=== PATIENT | female | born 1985 | race Hispanic/Latino ===

== ENCOUNTER 2018-03-17 00:16 | Emergency (ER) | payer OTHER ==
[~2018-03-17] VITALS: Ht 162.6 cm; Wt 117.9 kg
[2018-03-17] MEDS ORDERED: ONDANSETRON HCL INJ 2MG/ML 2ML 2 MG/ML VIAL IV STA (00:24)
[2018-03-17] MEDS ORDERED: MORPHINE SULFATE INJ 4 MG/ML INJ 1ML IV ONE (00:30)
[2018-03-17] MEDS ORDERED: DICYCLOMINE HCL 20 MG/2 ML VIAL IM ONE (00:30)
[2018-03-17] MEDS ORDERED: SODIUM CHLORIDE 0.9% 1000ML 1,000 ML IV ONE (00:30)
--- NOTE | 2018-03-17 00:35 | NUR ---
IN TO GIVE PT MEDS AT THIS TIME, PT STATES "I'M NOT GONNA TAKE THE MEDICATION IF YOU ARE NOT GONNA DO ANYTHING TO ME" WHEN I ASKED PT TO EXPLAIN WHAT SHE MENT, SHE STATES THAT IF WE WERE NOT GOING TO OPERATE ON HER SHE WOULD RATHER LEAVE AND GO TO ANOTHER HOSPITAL. PT WANTS TO WAIT UNTIL SHE GETS THE RESULTS OF HER LAB WORK. CHARGE NURSE AND MD BOTH NOTIFIED.
[2018-03-17 00:59] LABS: BASOPHILS # (AUTO) 0.1 (0.0-0.1); BASOPHILS % 0.4 % (0.0-1.0); EOSINOPHILS # (AUTO) 0.4 (0.0-0.4); EOSINOPHILS % 3.3 % (0.0-6.0); HEMATOCRIT 36.3 % (34.2-44.1); HEMOGLOBIN 11.9 g/dL (12.0-16.0); LYMPHOCYTES # (AUTO) 4.3 (1.0-3.2); MEAN CORPUSCULAR HEMOGLOBIN 25.8 pg (28-32); MEAN CORPUSCULAR HGB CONC 32.8 g/dL (31-35); MEAN CORPUSCULAR VOLUME 78.7 fL (81-99); MONOCYTES # (AUTO) 0.6 (0.2-0.8); MONOCYTES % 5.7 % (4.4-11.3); NEUTROPHILS # (AUTO) 5.9 (2.1-6.9); NEUTROPHILS % 52.3 % (38.7-80.0); PLATELET COUNT 291 x10e3/uL (140-360); RED BLOOD COUNT 4.61 x10e6/uL (3.6-5.1); RED CELL DISTRIBUTION WIDTH 13.8 % (11.7-14.4)
[2018-03-17 00:59] LABS: BILIRUBIN,URINE NEGATIVE (NEGATIVE); CLARITY,URINE CLEAR (CLEAR); COLOR,URINE YELLOW (YELLOW); KETONES,URINE NEGATIVE (NEGATIVE); LEUKOCYTE ESTERASE ,URINE NEGATIVE (NEGATIVE); NITRITE,URINE NEGATIVE (NEGATIVE); PROTEIN,URINE DIPSTICK NEGATIVE (NEGATIVE); URINE UROBILINOGEN 0.2 mg/dL (0.2 - 1); WBC,URINE (MAN) 0-5 /HPF (0-5)
[2018-03-17 01:00] LABS: BACTERIA,URINE RARE /HPF; EPITHELIAL CELLS,URINE FEW /LPF; PREGNANCY TEST, URINE NEGATIVE (NEGATIVE); RBC,URINE 0-5 /HPF (0-5)
[2018-03-17 01:04] LABS: ALANINE AMINOTRANSFERASE 11 IU/L (0-55); ALBUMIN 3.7 g/dL (3.5-5.0); ALBUMIN/GLOBULIN RATIO 1.1 (0.8-2.0); ALKALINE PHOSPHATASE 72 IU/L (40-150); AMYLASE 49 U/L (25-125); ANION GAP 13.5 mmol/L (8-16); BLOOD UREA NITROGEN 12 mg/dL (7-26); BUN/CREATININE RATIO 13 (6-25); CALCIUM 8.8 mg/dL (8.4-10.2); CARBON DIOXIDE 26 mmol/L (22-29); CHLORIDE 101 mmol/L (98-107); CREATININE, SERUM 0.95 mg/dL (0.57-1.11); EST GLOMERULAR FILTRATION RATE > 60 ML/MIN (60-); GLUCOSE 107 mg/dL (74-118); LIPASE 16 U/L (8-78); POTASSIUM 3.5 mmol/L (3.5-5.1); SODIUM 137 mmol/L (136-145)
--- NOTE | 2018-03-17 02:00 | NUR ---
DR LOVELACE AT BEDSIDE TO EXPLAIN RESULTS TO PT AND TO EXPLAIN CONVERSATION WITH DR CERVANTES. PT BECAME VERY UPSET THAT SHE WAS NOT GETTING SURGERY RIGHT NOW AND TOLD HER IN [place] THAT SHE WAS JUST GONNA GO TO ANOTHER HOSPITAL. DR LOVELACE FURTHER EXPLAINED THAT DR FERREIRA WANTS TO SEE HER IN HIS OFFICE (SINCE HER CONDITION WAS NOT LIFE THREATNING) TO SCHEDULE SURGERY. SHE THEN EXCLAIMED "THEN WHY DID THE NURSE (MEANING DR CERVANTES'S ANSWERING SERVICE) TELL HER TO COME TO THE HOSPITAL?" SHE THEN STARTED TO REMOVE HER IV HERSELF. WHEN I TRIED TO HELP SHE SAID THAT I WAS HURTING HER, I IMMEDIATLY STOPPED AND LET HER CONTINUE. LT AC 18 PIV WAS REMOVED, CATH INTACT, SITE WITHOUT COMPLICATIONS. PT REFUSED TO HAVE HER VS DONE. SHE THEN GOT DRESSED AND CAME UP TO THE WINDOW AND DEMANDED HER DISCHARGE PAPERWORK. WE TOLD HER THAT WE WERE WORKING ON IT AT THE MOMENT. SHE STOOD AT THE WINDOW AND WAS WANTING AN INTERPRETATION OF THE LAB RESULTS. DR LOVELACE EXPLAINED IT TO HER AND ASSURED HER THAT HE WENT OVER THE RESULTS WITH DR CERVANTES. SHE THEN DEMANDED A WORK EXCUSE, WHICH WAS GIVEN TO HER. SHE THEN SAYS THAT IF ANYTHING HAPPENED TO HER WHEN SHE LEAVES THE HOSPITAL ITS ON US. SHE THEN ASK ABOUT THE PRESCRIPTIONS THAT WERE GIVEN TO HER, DR LOVELACE EXPLAINED THEM TO HER. SHE THEN SIGNED THE DISCHAGE PAPERWORK AND STORMED OFF.
[2018-03-17] MEDS ORDERED: CLONAZEPAM0.5 MG PO (17:49)
== END 2018-03-17 02:18 | disposition home or self-care (01) ==
LOC: ER 00:16
DX: R10.11 Right upper quadrant pain (principal); R11.0 Nausea; K80.70 Calculus of gallbladder and bile duct without cholecystitis without obstruction
CPT/HCPCS: 36415; 80053; 81001; 81025; 82150; 83690; 85025; 96374; 99283; J0500; J2270; J2405; J7030

== ENCOUNTER → 2018-03-18 | Day surgery (SDC) | payer OTHER ==
[~2018-03-18] MED LIST: BUPIVACAINE 0.25%/EPI 30ML SDV INJ ONE; CEFOXITIN SOD 1 GM VIAL ONE; CLONAZEPAM0.5 MG PO; DEXAMETHASONE SOD PHOS INJ 4 MG/ML VIAL ONE; FENTANYL CITRATE/PF 100MCG/2 ML INJ ONE; KETOROLAC TROMETHAMINE 30 MG/ML VIAL ONE; LIDOCAINE HCL 2% LOCAL INJ 5 ML SDV VIAL INJ ONE; METOCLOPRAMIDE HCL 10 MG/2ML VIAL ONE; MIDAZOLAM HCL 2 MG/2 ML VIAL ONE; MORPHINE SULFATE INJ 4 MG/ML INJ 1ML ONE; ONDANSETRON HCL INJ 2MG/ML 2ML 2 MG/ML VIAL ONE; PROMETHAZINE HCL (IM) 25 MG/ML VIAL ONE; PROPOFOL IV EMULSION 10 MG/ML 20 ML VIAL ONE; ROCURONIUM BROMIDE 10 MG/ML 5ML VIAL ONE; SEVOFLURANE INHAL SOLN 250 ML PEN BTL ONE
--- NOTE | 2018-03-18 15:59 | Operative Report ---
DATE OF PROCEDURE: March 18, 2018 PREOPERATIVE DIAGNOSES 1. Acute cholecystitis/chronic cholecystitis. 2. Morbid obesity. PROCEDURE PERFORMED: Laparoscopic cholecystectomy. SEARCHLIGHT OPERATOR: None. ESTIMATED BLOOD LOSS: Minimal. DRAINS: None. COMPLICATIONS: None. INDICATIONS AND FINDINGS: The patient is a 32-year-old female who was seen by me several months ago at the office last year with cholelithiasis. I advised her to have elective cholecystectomy. The patient refused because of noncompliance, and then presented to the emergency room Wed night with right upper quadrant pain and nausea. She was evaluated there. She had several labs that were all normal, including liver function tests. No ultrasound was repeated as far as I know. Then was referred to the office. I scheduled the patient for urgent cholecystectomy the next day. Patient was started on Levaquin and Tylenol No. 3 for pain control. INTRAOPERATIVE FINDINGS: Were [id number] cholecystitis with several very large stones. There was no ductal dilatation. There was an umbilical hernia. This hernia was not repaired as we made the incision superior to that to avoid the hernia. Due to the fact that she is morbidly obese with a BMI of 44, a mesh would have been required, which I did not want to place under these circumstances. The cholecystectomy was then performed after we identified the triangle of safety, namely the cystic duct. The cystic artery, the common duct and also a segment of the plate of the liver and gallbladder bed fossa. DESCRIPTION OF PROCEDURE: With the patient lying on the operating table in the supine position and after administration of general endotracheal anesthesia, she was prepped and draped for laparoscopic cholecystectomy. The procedure was begun by establishing a pneumoperitoneum. Initially, we attempted the right upper quadrant, but we could not get appropriate distention. Then I tried an alternate site to the right of the subxiphoid region in the right upper quadrant. I was able to get a pneumoperitoneum easily with initial low pressures that were increased to 15 without any tension after the saline drop test was performed. After we did that, we placed a 5-mm trocar in the right upper quadrant. Then under direct vision with the camera, we saw that there was an umbilical hernia. Then we placed the 11/12 trocar slightly superior to the umbilicus sparing the hernia. We then placed the 10/11 subxiphoid trocar, and finally right anterior axillary line trocar. We identified the gallbladder. It had a thickened wall with some degree of edema. It was consistent with subacute and chronic. There was no evidence of gangrene. We went ahead and then mobilized the gallbladder. We retracted the gallbladder cephalad using grasping forceps through the 5-mm trocars, and then detached omentum from the gallbladder. Exposed the cystic duct and common bile duct junction, as well as the cystic artery. Then we transected the cystic duct distally 3 times and once proximally. The cystic duct was small and nondilated. As previously stated, she had very large stones. The cystic artery was transected between titanium clips. Then the gallbladder was mobilized from the liver bed using electrocautery, traction and contraction, as well as some degree of hydrodissection until we detached the gallbladder, placed in an endobag and removed it through the supraumbilical port. After we did that, we inspected the operative field after ascertaining there was no bile leak. No bleeding. No apparent bowel injury. We closed the wounds. The supraumbilical port site had been closed prior to the closure with vision with TV camera using two of the 1-0 Vicryl obliterating the defect. Then we released the pneumoperitoneum. Then closed the subcutaneous tissue in that location, as well as the subxiphoid port with 2-0 plain gut for the supraumbilical port site, as well as the subxiphoid region. Then we closed the supraumbilical incision with 3-0 silk, and the remaining port sites were closed using alejandro. Then 0.25% Marcaine with epinephrine was given as local block at the end of the case. The family was informed of the intraoperative findings. I specifically gave this noncompliant patient instructions regarding postop care. She is aware. She is not go to [employer] classes. She is not supposed to drive. She is not supposed to do any lifting until I instruct her and allow her to do so. She agreed to follow my operative instruction. The sister was informed that she had an umbilical hernia, and that this would not be fixed now due to the fact that the acuteness of the situation and the fact that she is morbidly obese, and this type of hernia in this patient will require mesh placement. Job#: [id number] DELORES
[2018-03-18 16:00] VITALS: BP 116/87
== END | disposition home or self-care (01) ==
LOC: OR 08:15
PROVIDERS: ATTEND Surgery
DX: K80.12 Calculus of gallbladder with acute and chronic cholecystitis without obstruction (principal); K42.9 Umbilical hernia without obstruction or gangrene; E66.01 Morbid (severe) obesity due to excess calories; J45.998 Other asthma; F41.9 Anxiety disorder, unspecified; Z68.41 Body mass index [BMI] 40.0-44.9, adult
CPT/HCPCS: 47562; 88304; C1766; J0694; J1100; J1885; J2001; J2250; J2270; J2405; J2550; J2704; J2765